=== PATIENT | female | born 1995 | race Hispanic/Latino ===

== ENCOUNTER → 2016-10-21 | Outpatient (CLI) | payer OTHER ==
--- NOTE | 2016-10-23 20:28 | MRI ---
EXAM DESCRIPTION: MRI left knee CLINICAL HISTORY: Left knee pain. Lifting injury at work. [place] [employer] [place] COMPARISON: None. TECHNIQUE: Multiplanar, multisequence MR images of the left knee FINDINGS: ACL, PCL, MCL and fibular collateral ligaments are intact No medial or lateral meniscal tear. No high-grade chondrosis or focal osteochondral lesion femorotibial or patellofemoral Biceps femoris, popliteus and iliotibial band tendons are intact. Patellar and quadriceps tendons are intact. There is prepatellar edema anteriorly along the patellar tendon and at the tibial tubercle. Edema is present in the quadriceps fat pad with no abnormality of the quadriceps tendon otherwise Small joint effusion without focal synovitis or intra-articular body. Muscles around the knee are normal. No abnormality along the neurovascular structures IMPRESSION: No meniscal tear or focal chondral defect identified Ligaments are intact Edema in the quadriceps fat pad may relate to impingement. Thin medial plica Electronically signed by: Everardo Swain MD 10/23/2016 8:28 PM CDT Workstation: [id number] [email or web address]
== END | disposition home or self-care (01) ==
LOC: MRI 08:53
PROVIDERS: ATTEND Nurse Practitioner Family
DX: M25.462 Effusion, left knee (principal); M67.52 Plica syndrome, left knee